=== PATIENT | male | born 1995 | race Caucasian/White ===

== ENCOUNTER → 2017-10-15 | Outpatient (REF) | payer OTHER ==
[~2017-10-15] MED LIST: PER PO
[2017-10-15 11:28] LABS: PLATELET COUNT, AUTOMATED 246 K/uL (150-450)
[2017-10-15 11:42] LABS: INR 1.06
== END ==
LOC: ZZSTITCHES 10:56
PROVIDERS: ATTEND Physician Assistant
DX: R04.0 Epistaxis (principal)
CPT/HCPCS: 82040; 82247; 82310; 82374; 82435; 82565; 82947; 84075; 84132; 84155; 84295; 84450; 84460; 84520; 85025; 85610; 85730

== ENCOUNTER → 2017-12-03 | Outpatient (CLI) | payer OTHER ==
--- NOTE | 2017-12-03 17:36 | RADIOLOGY IMAGING REPORT ---
FACILITY: [facility] PATIENT NAME: Lupillo Martínez : 1995 MR: [id number] V: [id number] EXAM DATE: ORDERING PHYSICIAN: JEANNE ZHOU TECHNOLOGIST: Location: [facility] [place] Patient: Lupillo Martínez : 1995 Visit/Account:[id number] Date of Sevice: 12/03/2017 EXAMINATION: CT head without IV contrast HISTORY: Posttraumatic headache. Fall this morning. COMPARISON: CT head from 03/01/2016. TECHNIQUE: Contiguous axial images were obtained from the skull base to the vertex without intraven ous contrast. Sagittal and coronal reformatted images are also submitted. One of the following dose optimization techniques was utilized in the performance of this exam: Autom ated exposure control; adjustment of the mA and/or kV according to the patient's size; or use of an i terative reconstruction technique. Specific details can be referenced in the facility's radiology C T exam operational policy. FINDINGS: Brain volume: Normal. Ventricles: Normal. Acute ischemic changes: None. Hemorrhage: No acute intracranial hemorrhage. Masses/edema: None. Boland-white: Negative. White matter: Normal. Vessels: Negative. Extra-axial: Negative. Calvarium/scalp: No acute fracture. Skull base/visualized face: Negative. Visualized sinuses/orbits: Negative. IMPRESSION: No acute fracture, hemorrhage or intracranial mass lesion. No CT evidence of acute infarct. Report Dictated By: Selina Pederson MD at 12/03/2017 5:25 PM Report E-Signed By: Selina Pederson MD at 12/03/2017 5:31 PM WSN:[id number]
== END ==
LOC: CT 16:53
PROVIDERS: ATTEND Nurse Practitioner Family
DX: G44.309 Post-traumatic headache, unspecified, not intractable (principal)
CPT/HCPCS: 70450

== ENCOUNTER → 2018-11-10 | Outpatient (CLI) | payer OTHER ==
[~2018-11-10] MED LIST changes: +AMOX-559 PO
--- NOTE | 2018-11-10 14:11 | RADIOLOGY IMAGING REPORT ---
FACILITY: [facility] - [place], [place] PATIENT NAME: Lupillo Martínez : 1995 MR: [id number] V: [id number] EXAM DATE: ORDERING PHYSICIAN: CIARRA MORAES TECHNOLOGIST: Location: [facility] Patient: Lupillo Martínez : 1995 Visit/Account:[id number] Date of Sevice: 11/10/2018 TESTICULAR HISTORY: History of bilateral varicoceles, bilateral testicular pain x2-3 weeks COMPARISON: March 25, 2016 FINDINGS: Testes: Right testicle measures 4.6 x 2.3 x 3.5 cm. Left testicle measures 4.4 x 1.8 x 3.2 cm Symme tric and unremarkable blood flow documented by color and Duplex Doppler ultrasound. Period there are a few scattered calcifications seen in both testes Epididymides: The head the epididymis on the right measures 1.1 cm in diameter. There is a 2.[address] in the head the epididymis on the right. The head epididymis on the left measures 1.[address] Blood flow is unremarkable in each epididymis by color Doppler ultrasound. Hydrocele: None. Varicocele: There bilateral varicoceles, left slightly more prominent than the right IMPRESSION: Bilateral varicoceles, left slightly more prominent than the right A few scattered calcified occasions are seen in both testes Tiny cyst head of the epididymis on the right Report Dictated By: Venita Fitzpatrick MD at 11/10/2018 2:01 PM Report E-Signed By: Venita Fitzpatrick MD at 11/10/2018 2:07 PM WSN:[id number]
== END ==
LOC: US 06:55
PROVIDERS: ATTEND Internal Medicine
DX: I86.1 Scrotal varices (principal)
CPT/HCPCS: 76870